=== PATIENT | female | born 1980 | race Caucasian/White ===

== ENCOUNTER 2025-10-04 13:42 | Emergency (ER) | payer OTHER, SELFPAY ==
[2025-10-04] MEDS ORDERED: HUMA50IN4 SC (15:09)
[2025-10-04] MEDS ORDERED: METF-838 PO (15:09)
[2025-10-04] MEDS ORDERED: BASA100I SC (15:09)
== END 2025-10-04 13:45 | disposition admitted as inpatient to this hospital (09) ==
LOC: M ED 13:42
DX: Z53.21 Procedure and treatment not carried out due to patient leaving prior to being seen by health care provider (principal)

== ENCOUNTER 2025-10-04 13:50 | Outpatient (CLI) ==
[~2025-10-04] VITALS: Ht 172.7 cm; Wt 144.6 kg
[2025-10-04 14:18] VITALS: BP 150/73
[2025-10-04] MEDS ORDERED: BASA100I SC (15:09)
[2025-10-04] MEDS ORDERED: HUMA50IN4 SC (15:09)
[2025-10-04] MEDS ORDERED: METF-838 PO (15:09)
== END 2025-10-04 15:17 | disposition home or self-care (01) ==
LOC: M LDO 13:50
PROVIDERS: ATTEND Student in an Organized Health Care Education/Training Program
DX: O26.853 Spotting complicating pregnancy, third trimester (principal); Z3A.33 33 weeks gestation of pregnancy
CPT/HCPCS: 59025; G0463